=== PATIENT | male | born 1935 | race Caucasian/White ===

== ENCOUNTER 2019-08-06 11:15 | Emergency (ER) | payer MEDICARE, SELFPAY ==
[2019-08-06 11:18] VITALS: BP 156/99; PULSE 86; RESP 18; TEMP 37; O2SAT 98; BMI 20.6
--- NOTE | 2019-08-06 11:37 | CT_ITS ---
PROCEDURE: CT ABDOMEN PELVIS W CON CLINICAL INDICATION: abd pain COMPARISON: No exams were available for comparison TECHNIQUE: IV Contrast: 75ML OPTIRAY 350 Oral Contrast None Axial images obtained with sagittal and coronal reformats. All CT scans at the facility use one or more dose reduction, viz: automated exposure control, ma/kV adjustment per patient size (including targeted exams where dose is matched to indication, i.e. head), or iterative reconstruction technique. FINDINGS: CT scan of the abdomen contrast: The lung bases are unremarkable. There is a moderate size hiatal hernia noted. There are several cystic lesions throughout the hepatic parenchyma some which appear to be atypical and may represent hemangiomas. Gallstones are present. The adrenal glands, pancreas, spleen, kidneys, and aorta is unremarkable. Soft tissues and bony structures are unremarkable. CT scan of the pelvis with contrast There is a fat containing left inguinal hernia and a nonincarcerated, bowel containing right inguinal hernia extending into the scrotum. There is ascites noted within the herniated scrotal sac.. There is stool and fluid distention of the large bowel to the level of an attenuated segment of the mid sigmoid colon. The prostate is grossly enlarged and attenuates the lumen of the midsigmoid colon.. Seminal vesicles are unremarkable. Soft tissues and bony structures are unremarkable. 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 Gallstones Dictated by: Hema Overton 08/06/2019 14:19 Electronically signed by Hema Overton in [facility] 08/06/2019 14:19
[2019-08-06 11:48] LABS: Chloride 93 mmol/L (98-107); Sodium 137 mmol/L (136-145)
[2019-08-06 11:50] LABS: Eosinophils % 0.1 % (0.1-12.0); Hematocrit 52.7 % (42.0-52.0); Lymphocytes # 0.9 K/mm3 (0.7-4.5); Lymphocytes % 7.1 % (10-50); Mean Corpuscular HGB Conc 34.8 g/dL (31.8-35.4); Mean Corpuscular Hemoglobin 31.7 pg (27.0-31.2); Mean Corpuscular Volume 91.3 fl (80-94); Mean Platelet Volume 7.2 fl (7.4-10.4); Monocytes # 0.6 K/mm3 (0.1-1.0); Monocytes % 4.3 % (1.7-9.3); Neutrophils # 11.5 K/mm3 (1.8-7.8); Neutrophils % 88.5 % (37.0-80.0); Platelet Count 195 K/mm3 (142-424); Red Blood Count 5.77 M/mm3 (4.60-6.20); Red Cell Distribution Width 14.1 % (11.5-17.5)
[2019-08-06 11:51] LABS: Alanine Aminotransferase 31 U/L (12-78); Alkaline Phosphatase 107 U/L (38-126); Amylase 68 U/L (30-110); Anion Gap 13.8 mEq/L (5-15); Aspartate Amino Transferase 33 U/L (17-59); Bilirubin,Total 1.5 mg/dl (0.2-1.3); Blood Urea Nitrogen 17 mg/dl (9-20); Carbon Dioxide 33 mmol/L (22.0-30.0); Creatinine Clearance Estimated 47 mL/min (50-200); Estimated Glomerular Filt Rate 72 ml/min (>60); GFR (African American) 87 ML/MIN (>60)
[2019-08-06 11:52] LABS: Albumin Level 4.2 g/dl (3.5-5.0); Albumin/Globulin Ratio 1.4 (1.1-1.8); Calcium 9.7 mg/dl (8.4-10.2); Globulin 3.1 g/dL (1.3-3.2); Glucose 152 mg/dl (74-100); Lipase 66 U/L (23-300); MANUAL DIFFERENTIAL MANUAL DIFFERENTIAL (MANUAL DIFF); Total Protein,Serum 7.3 g/dl (6.3-8.2)
[2019-08-06 11:59] LABS: Potassium 2.8 mmoL/L (3.5-5.1)
[2019-08-06 12:03] LABS: Troponin I 0.03 ng/ml (0.00-0.034)
[2019-08-06 12:18] LABS: Microscopic, Urine URINE MICROSCOPIC (MICROSCOPIC)
[2019-08-06 12:20] LABS: Appearance,Urine CLOUDY (Clear); Blood, Urine TRACE-I (Negative); Color,Urine DK YELLOW (Yellow); Glucose,Urine (UA) Negative (Negative); Ketones,Urine TRACE (Negative); Leukocyte Esterase,Urine Negative (Negative); Nitrate,Urine Negative (Negative); Protein,Urine TRACE (Negative); Specific Gravity, Urine >= 1.030 (1.005-1.030)
--- NOTE | 2019-08-06 12:20 | PC.NURSE ---
Pt returned from rad.
[2019-08-06 12:21] LABS: Lymphocytes % 7 % (10-50); Monocytes % 2 % (2-9); Neutrophils % 91 % (42-76); Total Cells Counted 100
[2019-08-06 12:24] LABS: Platelet Estimate Normal; RBC Morphology Normal
[2019-08-06 12:30] LABS: Bilirubin,Urine Negative (Negative)
[2019-08-06 12:32] LABS: Bacteria,Urine 4+ /lpf; Squamous Epithelial Cell,Urine Occasional #/hpf (0-5); WBC,Urine 20-50 #/hpf (0-3)
[2019-08-06 12:34] LABS: Hemoglobin 18.3 g/dL (14.1-18.0)
--- NOTE | 2019-08-06 13:00 | PC.NURSE ---
dr elena griggs he is in surgery
--- NOTE | 2019-08-06 13:07 | PC.NURSE ---
dr elena griggs he is in surgery
--- NOTE | 2019-08-06 13:08 | PC.NURSE ---
Dr Alejo on with Dr Hager
--- NOTE | 2019-08-06 13:28 | PC.NURSE ---
placed call to [facility] for dr horan colo rectal surgery
--- NOTE | 2019-08-06 13:41 | PC.NURSE ---
Dr Hager speaking to surgeon at
--- NOTE | 2019-08-06 13:43 | PC.NURSE ---
[facility] accepting to the ER
--- NOTE | 2019-08-06 13:45 | PC.NURSE ---
Dr Aaron accepting
--- NOTE | 2019-08-06 13:52 | PC.NURSE ---
Pt family to take pt to [facility]
[2019-08-06 13:57] VITALS: BP 189/95; PULSE 85; O2SAT 96
--- NOTE | 2019-08-06 13:57 | [facility].EDABDPAI ---
ED Disposition Clinical Impression: Colon cancer high risk, Bowel obstruction Disposition: Xfer Short-Term Hosp Condition on Discharge: Good Instructions: DI for Acute Abdomen Additional Instructions: Is present to the [facility] emergency department Dr. DIEGO will be the surgeon that you need to speak to. Referrals: Harvey Johnson MD [Primary Care Provider] - - Critical Care Critical Care Time: No Attestation: On 08/06/19, the high probability of a clinically significant, sudden or life threatening deterioration of the following system(s) required my full and direct attention, intervention and personal management. The time I documented below is in addition to time spent performing reported procedures but includes the following listed in this critical care notation. Medical Decision Making - Medical Records Medical records reviewed: Yes: I reviewed the patient's medical records. - Sumeet Inquiry Pt receiving controlled substance: No Vital Signs: 08/06/19 11:18 Temperature 98.6 F Temperature Source Oral Pulse Rate [Left Radial] 86 Respiratory Rate 18 Blood Pressure [Right Arm] 156/99 H Blood Pressure Mean [Right Arm] 118 Blood Pressure Position [Right Arm] Sitting 02 Sat by Pulse Oximetry 98 Oxygen Delivery Method Room Air - Lab Data Lab results reviewed: Yes: I reviewed the patient's lab results. Lab Results 08/06/19 11:35: WBC 13.0 H, RBC 5.77, Hgb 18.3 H*, Hct 52.7 H, MCV 91.3, MCH 31.7 H, MCHC 34.8, RDW 14.1, Plt Count 195, MPV 7.2 L, Neut % (Auto) 88.5 H, Lymph % (Auto) 7.1 L, Reynolds % (Auto) 4.3, Eos % (Auto) 0.1, Baso % (Auto) 0.0 L, Neut # (Auto) 11.5 H, Lymph # (Auto) 0.9, Reynolds # (Auto) 0.6, Eos # (Auto) 0.0, Baso # (Auto) 0.0, Total Counted 100, Neutrophils % (Manual) 91 H, Lymphocytes % (Manual) 7 L, Monocytes % (Manual) 2, Platelet Estimate Normal, RBC Morphology Normal 08/06/19 11:35: Sodium 137, Potassium 2.8 L*, Chloride 93 L, Carbon Dioxide 33 H, Anion Gap 13.8, BUN 17, Creatinine 1.00, Estimated Creat Clear 47, Estimated GFR 72, Est GFR ( Amer) 87, Glucose 152 H, Calcium 9.7, Total Bilirubin 1.5 H, AST 33, ALT 31, Alkaline Phosphatase 107, Troponin I 0.03, Total Protein 7.3, Albumin 4.2, Globulin 3.1, Albumin/Globulin Ratio 1.4, Amylase 68, Lipase 66 08/06/19 12:00: Urine Color Dk yellow, Urine Appearance Cloudy, Urine pH 6.0, Ur Specific [place] >= 1.030, Urine Protein Trace, Urine Glucose (UA) Negative, Urine Ketones Trace, Urine Blood Trace-i, Urine Nitrate Negative, Urine Bilirubin Negative, Urine Urobilinogen 1.0, Ur Leukocyte Esterase Negative, Urine RBC 5-10, Urine WBC 20-50, Ur Squamous Epith Cells Occasional, Urine Bacteria 4+ Result diagrams: 08/06/19 11:35 08/06/19 11:35 Orders (Tests/Meds): ED MEDICATIONS Discontinued Medications Generic Name Dose Route Start Last Admin Trade Name Billq PRN Reason Stop Dose Admin Sodium Chloride 1,000 mls @ 999 mls/hr 08/06/19 12:00 08/06/19 11:51 Sod Chlor 0.9% 1000ml Bag IV 08/06/19 13:00 999 mls/hr .Q1H1M JEN Administration Ioversol 75 ml 08/06/19 13:05 08/06/19 13:05 Rad-Optiray 350 100ml Vial IV 08/06/19 13:06 75 ml ONCE ONE Administration Protocol Potassium Chloride 80 meq 08/06/19 12:17 08/06/19 12:34 Klor-Con 20meq Tablet PO 08/06/19 12:18 80 meq ONCE ONE Administration Sodium Chloride 50 ml 08/06/19 13:05 08/06/19 13:05 Rad-Ns 50ml Vial IV 08/06/19 13:06 Not Given ONCE ONE Sodium Chloride 10 ml 08/06/19 13:05 08/06/19 13:05 Rad-Saline Flush 10ml Syringe IV 08/06/19 13:06 10 ml ONCE ONE Administration ORDERS Category Date Time Status CT abdomen pelvis w con Stat Cat Scan 08/06/19 11:37 Taken Troponin I Q3H Lab 08/06/19 14:45 Ordered Troponin I Q3H Lab 08/06/19 17:45 Ordered Urine Culture Stat Micro 08/06/19 12:00 Received - CT Data CT Scan: Abdomen, Pelvis Time Received: 13:[address] Reviewed: Yes: I have viewed the radiologist's inter
--- NOTE | 2019-08-06 14:17 | PC.NURSE ---
report called to [facility] roma Keene rn
[2019-08-06 14:18] VITALS: BP 180/79; PULSE 80; RESP 18; TEMP 36.6; O2SAT 98
== END 2019-08-06 14:19 | disposition short-term general hospital (02) ==
PROVIDERS: Emergency Provider Family Medicine; PCP Family Medicine
DX: C18.9 Malignant neoplasm of colon, unspecified (principal); K56.609 Unspecified intestinal obstruction, unspecified as to partial versus complete obstruction; Z88.2 Allergy status to sulfonamides; Z79.899 Other long term (current) drug therapy
CPT/HCPCS: 74177; 80053; 81001; 82150; 83690; 84484; 85007; 85025; 87086; 87088; 87186; 96365; 99283; Q9967